=== PATIENT | male | born 1975 | race Caucasian/White ===

== ENCOUNTER 2022-08-10 08:34 | Day surgery (SDC) | payer MEDICARE, MEDICAID ==
[2022-08-10] MEDS ORDERED: Propofol 200 MG/20 ML SDV ONE (09:13)
[2022-08-10] MEDS ORDERED: Midazolam 1 MG/ML 2 ML SDV ONE (09:13)
[2022-08-10] MEDS ORDERED: Sodium Chloride 0.9% 10 ML Syringe FLUSH PRN (09:15)
[2022-08-10] MEDS ORDERED: Sodium Chloride 0.9% 1,000 ML IV SCH (09:45)
== END 2022-08-10 11:43 | disposition home or self-care (01) ==
LOC: JP.SDS 08:34
PROVIDERS: ATTEND Ophthalmology
DX: H26.9 Unspecified cataract (principal); F84.0 Autistic disorder; R62.50 Unspecified lack of expected normal physiological development in childhood; Z79.899 Other long term (current) drug therapy; Z88.0 Allergy status to penicillin; Z88.1 Allergy status to other antibiotic agents
CPT/HCPCS: J2250; J2704; J7030